=== PATIENT | female | born 1990 | race Caucasian/White ===

== ENCOUNTER 2024-08-01 07:40 | Emergency (ER) | payer OTHER, SELFPAY ==
[2024-08-01 07:43] VITALS: BP 153/99
--- NOTE | 2024-08-01 08:32 | ED.GENMED ---
History of Present Illness
General
Chief Complaint: Flank Pain
Source: patient
Time Seen by Provider: 08/01/24 08:12
History of Present Illness
History of Present Illness:
34-year-old female presents to the emergency room complaining of pain in her left back that radiates around to the front. Pain began about 6 days ago. Movement and deep breaths make the pain worse. She denies any recent trauma. She does do some
moderate lifting but does not recall the pain starting after lifting. She denies any shortness of breath. Patient was seen at a urgent care for this 3 days ago. She was prescribed prednisone because the area was 'inflamed'. Prednisone may have
helped a little bit.
Phy Exam
Physical Exam
Physical Exam:
General: Awake, Alert, Oriented X3. High BMI. Appears uncomfortable from pain
Vitals: unremarkable
Head: Atraumatic
Eyes: Pupils equal, EOMI
Throat: Airway intact, no exudates
Neck: Trachea midline
Lungs: Clear and equal b/l
Heart: Regular rate, no murmurs
Abd: Soft, Nontender, No pulsatile mass
Back: Tenderness to percussion on the left CVA
Neuro: Nonfocal
Skin: Warm, dry, vesicular rash noted left flank in the paraspinal region as well as a couple lesions noted on the anterior abdomen in a dermatomal distribution.
Extremities: pulses equal b/l, no edema
Course
Orders/Labs/Results
Orders:
Orders
08/01/24 08:28
Ketorolac [Toradol] 15 mg IV NOW STA
Valacyclovir HCl [Valtrex] 1,000 mg PO NOW STA
08/01/24 08:29
Test Result ONCE
08/01/24 08:45
Urinalysis Reflex To Culture Urgent
Date Specimen was Collected: 08/01/24
Time Specimen was Collected: 08:26
08/01/24 08:25
08/01/24 08:25
Vital Signs
Initial and Last Documented VS:
Initial Vital Signs
Temp Pulse Resp BP Pulse Ox
98.2 F 94 19 153/99 99
08/01/24 07:43 08/01/24 07:43 08/01/24 07:43 08/01/24 07:43 08/01/24 07:43
Last Documented Vital Signs
Temp Pulse Resp BP Pulse Ox
98.2 F 94 19 153/99 99
08/01/24 07:43 08/01/24 07:43 08/01/24 07:43 08/01/24 07:43 08/01/24 08:35
MDM/Problems Addressed
Differential Diagnosis Includes:
Kidney stone, herpes zoster, cellulitis
MDM/Problems Addressed:
Rash highly consistent with zoster. Will check urine to exclude hematuria but based on physical exam quite confident the patient has zoster. But she has had pain for several days the lesions are not crusted. Will start treatment with antivirals
and analgesia.
*Pulse Oximetry
SaO2: 99
Oxygen Mode of Delivery: Room air
Patient hypoxic: no
*Critical Care Note
Total Time (30-74mins, 75-104mins- exclusive of procedures): Not Applicable
ED Attending Note
-
Portions of this chart may have been created with voice recognition software.� Occasional wrong word or��sound alike� substitutions may have occurred due to the inherent limitations of voice recognition software.
Discharge Plan
Departure
Patient Disposition: Home (Routine Discharge)
Date of Disposition: 08/01/24
Time of Disposition: 09:20
Patient with high blood pressure during this ER visit?: Yes
Condition: Good
Discharge Problem:
Herpes zoster
Instructions: Shingles, BLOOD PRESSURE, Narcotic Pain Medication
Prescriptions:
New
oxycodone 5 mg tablet
5 mg PO Q6H PRN (Reason: Pain) Qty: 12 0RF
valacyclovir [Valtrex] 1 gram tablet
1,000 mg PO TID 7 Days Qty: 21 0RF
Referrals:
Batsheva Rodas DO [Family Provider]
Activity Restrictions/Additional Instructions:
You should take Tylenol 1000mg and ibuprofen 400mg every 6 hours for pain. I have sent a prescription for oxycodone for severe pain not relieved by Tylenol and ibuprofen. I have also sent a prescription for Valtrex which is an antiviral medicine
that you should take 3 times a day for 1 week. Follow-up with your family doctor as scheduled.
Interventions
Interventions:
*Risk Screen - Suicide Last Done: 08/01/24 07:43
*Neglect/Abuse Screening Last Done: 08/01/24 07:43
*Nursing Disposition Last Done: 08/01/24 10:29
XR-Hbroqd-Uwnfkzztcr Assessment Last Done: 08/01/24 08:05
ED-Female Genitourinary Assessment Last Done: 08/01/24 08:05
Discharge Date and Time
Discharge Date/Time: 08/01/24 10:29
Print Language: FRISIAN
[2024-08-01] MEDS: TORADOL 15 MG IV (08:37)
[2024-08-01] MEDS: VALTREX 1000 MG PO (08:37)
[2024-08-01 09:07] LABS: Urine Albumin Negative (Neg - Trace); Urine Bilirubin Negative (Negative); Urine Character Clear (Clear); Urine Color Yellow; Urine Glucose Negative (Negative); Urine Ketone Negative (Negative); Urine Leukocyte Negative (Negative); Urine Nitrite Negative (Negative); Urine Occult Blood Negative (Negative); Urine Urobilinogen Negative (Neg - 1+)
== END 2024-08-01 10:29 | disposition home or self-care (01) ==
LOC: EMR 07:40
PROVIDERS: EMERGENCY PHYSICIAN Emergency Medicine; FAMILY PHYSICIAN Family Medicine
DX: B02.9 Zoster without complications (principal)
CPT/HCPCS: 99282; 96374; 81003